=== PATIENT | female | born 1995 | race Caucasian/White ===

== ENCOUNTER 2018-08-05 11:06 | Day surgery (SDC) | payer BC ==
[~2018-08-05 11:06] MED LIST: Lactated Ringers 1,000 ML IV SCH
--- NOTE | 2018-08-05 11:53 | PCM.PREANE ---
Preanesthetic Assessment - Anesthesia/Transfusion/Family Hx Anesthesia History: Prior Anesthesia Without Reaction Family History of Anesthesia Reaction: No Transfusion History: No Prior Transfusion(s) - Review of Systems General: No Symptoms Pulmonary: No Symptoms Cardiovascular: No Symptoms Gastrointestinal: No Symptoms Neurological: No Symptoms Other: Reports: None - Physical Assessment NPO Status Date: 08/04/18 Height: 5 ft 8.5 in Weight: 68.039 kg ASA Class: 1 Mental Status: Alert & Oriented x3 Airway Class: Mallampati = 2 Dentition: Reports: Normal Dentition ROM/Head Extension: Full Lungs: Clear to Auscultation, Normal Respiratory Effort Cardiovascular: Regular Rate, Regular Rhythm - Lab Values: Laboratory Last Values WBC 4.59 K/uL (4.0-11.0) 08/05/18 11:20 RBC 4.86 M/uL (4.30-5.90) 08/05/18 11:20 Hgb 14.9 g/dL (12.0-16.0) 08/05/18 11:20 Hct 44.1 % (36.0-46.0) 08/05/18 11:20 MCV 90.7 fL (80.0-98.0) 08/05/18 11:20 MCH 30.7 pg (27.0-32.0) 08/05/18 11:20 MCHC 33.8 g/dL (31.0-37.0) 08/05/18 11:20 RDW Std Deviation 39.3 fl (28.0-62.0) 08/05/18 11:20 RDW Coeff of Wilmer 12 % (11.0-15.0) 08/05/18 11:20 Plt Count 237 K/uL (150-400) 08/05/18 11:20 MPV 9.80 fL (7.40-12.00) 08/05/18 11:20 Nucleated RBC % 0.0 /100WBC 08/05/18 11:20 Nucleated RBCs # 0 K/uL 08/05/18 11:20 HCG, Qual NEGATIVE (NEG) 08/05/18 11:20 - Allergies Allergies/Adverse Reactions: Allergies Allergy/AdvReac Type Severity Reaction Status Date / Time No Known Allergies Allergy Verified 08/05/18 11:51 - Blood Blood Available: Yes - Anesthesia Plan Pre-Op Medication Ordered: None - Acknowledgements Anesthesia Type Planned: General Anesthesia Pt an Appropriate Candidate for the Planned Anesthesia: Yes Alternatives and Risks of Anesthesia Discussed w Pt/Guardian: Yes Pt/Guardian Understands and Agrees with Anesthesia Plan: Yes Additional Comments: anes prob list: migraine hx PLAN: ga with toradol and antiemetic PreAnesthesia Questionnaire HEENT History: Reports: None Cardiovascular History: Reports: None Respiratory History: Reports: None Gastrointestinal History: Reports: None Genitourinary History: Reports: None SIGNAL SUPERVISOR History: Reports: None Musculoskeletal History: Reports: Fracture Other Musculoskeletal History: hx fx leg Neurological History: Reports: Migraines Psychiatric History: Reports: None Endocrine/Metabolic History: Reports: None Hematologic History: Reports: None Immunologic History: Reports: None Oncologic (Cancer) History: Reports: None Dermatologic History: Reports: None - Past Surgical History Head Surgeries/Procedures: Reports: None HEENT Surgical History: Reports: Adenoidectomy, Tonsillectomy Cardiovascular Surgical History: Reports: None Respiratory Surgical History: Reports: None GI Surgical History: Reports: None Female Surgical History: Reports: None Endocrine Surgical History: Reports: None Neurological Surgical History: Reports: None Musculoskeletal Surgical History: Reports: Other (See Below) Other Musculoskeletal Surgeries/Procedures:: hx tendon repair and loja treated on rt hand, hx cyst removed from rt hand Oncologic Surgical History: Reports: None - SUBSTANCE USE Smoking Status *Q: Never Smoker Recreational Drug Use History: No - HOME MEDS Home Medications: Home Meds Cranberry 1 tab PO DAILY 07/30/18 [History] Fexofenadine/Pseudoephedrine [Laura-D 24 Hour Tablet] 1 tab PO DAILY PRN 07/30 [History] Fluticasone Propionate [Flonase Allergy Relief] 1 spray NASBOTH DAILY PRN [History] L.acidoph,Paracasei, B.lactis [Probiotic] 1 tab PO DAILY 07/30/18 [History] Polyethylene Glycol 3350 [Miralax] 1 dose PO ASDIRECTED PRN 07/30/18 [History] - CURRENT (IN HOUSE) MEDS Current Meds: Current Medications Lactated Ringer's (Ringers, Lactated) 1,000 mls @ 125 mls/hr IV ASDIRECTED ON LICENSE OF [facility]
[2018-08-05] MEDS ORDERED: Propofol 200 MG/20 ML SDV ONE (12:28)
[2018-08-05] MEDS ORDERED: Midazolam 1 MG/ML 2 ML SDV ONE (12:28)
[2018-08-05] MEDS ORDERED: fentaNYL 100 MCG/2 ML SDV ONE (12:28)
[2018-08-05] MEDS ORDERED: Ondansetron 4 MG/2 ML SDV ONE (12:29)
[2018-08-05] MEDS ORDERED: Ketorolac 30 MG/ML SDV ONE (12:29)
[2018-08-05] MEDS ORDERED: Lidocaine 2% 5 ML SDV ONE (12:29)
[2018-08-05] MEDS ORDERED: Dexamethasone 4 MG/ML 5 ML MDV ONE (12:29)
[2018-08-05] MEDS ORDERED: fentaNYL 100 MCG/2 ML SDV IVPUSH PRN (13:24)
[2018-08-05] MEDS ORDERED: Ondansetron 4 MG/2 ML SDV IVPUSH PRN (13:24)
[2018-08-05] MEDS ORDERED: HYDROmorphone 2 MG/ML SDV IVPUSH PRN (13:24)
--- NOTE | 2018-08-05 14:10 | PCM.OPNOTE ---
- General Post-Op/Procedure Note Date of Surgery/Procedure: 08/05/18 Operative Procedure(s): operative hysterscopy polypectomy and fractional dilatation and curettage Findings: Uterus is anteverted, sounds to 9 cm, 1 cm anterior polyp, lower uterine segment. Pre Op Diagnosis: Uterine polyp Post-Op Diagnosis: Same Anesthesia Technique: General LMA Primary Surgeon: Ev Siddiqi Anesthesia Provider: Uzma Tran Pathology: endometrial polyp, endometrial curettings, endocervical curettings. Fluid Replacement, Intraop: 900 EBL in mLs: 30 Drain/Tube Comments:: hysteroscopic deficit 250 ml Complications: None Known Condition: Good
--- NOTE | 2018-08-05 15:22 | OR ---
SURGEON: Ev Siddiqi M.D. DATE OF PROCEDURE: 08/05/2018 PREOPERATIVE DIAGNOSIS: Endometrial polyp. POSTOPERATIVE DIAGNOSIS: Endometrial polyp. PROCEDURE: Hysteroscopic polypectomy, fractional D and C. PRIMARY SURGEON: Ev Siddiqi M.D. ANESTHESIA: General LMA. ESTIMATED BLOOD LOSS: Less than 30 mL. FINDINGS: Uterus anteverted, sounds to 9 cm, 1 cm anterior mid lower uterine segment polyp. COMPLICATIONS: None known. DISPOSITION: Stable to recovery. HYSTEROSCOPIC DEFICIT: 250 mL. IV FLUIDS: 900 mL of crystalloid. BRIEF HISTORY: This is a 23-year-old female, G0. She presents after ultrasound showed endometrial polyp. This was confirmed by saline-enhanced ultrasound and recommendation was to proceed with a hysteroscopic polypectomy and fractional D and C with risks discussed including bleeding, infection, uterine perforation with injury to surrounding organs, risk of thromboembolism, and risk of anesthesia. Understanding all these risks, she does desire to proceed. DESCRIPTION OF PROCEDURE: With the patient in dorsal lithotomy position, under adequate general LMA analgesia, the perineum and vagina were prepped with Betadine and draped in usual fashion for vaginal surgery. SCDs were in place. The bladder had been straight cathed and an appropriate time-out was held. After the pelvis was appropriately draped, a bimanual examination revealed an anteverted 8-week size uterus. Speculum was placed in the vagina. The anterior lip of the cervix was grasped with an Allis clamp. The cervix accepted 6 mm dilator without any difficulty and the uterus sounded to 9 cm. The MyoSure hysteroscope was placed into the uterine cavity and there was excellent visualization. Bilateral tubal ostia were identified, the fundus was identified, and there was a single 1 cm anterior polyp. The MyoSure was utilized to excise the polyp. Sharp curettage of the endocervix was performed. Then, after the MyoSure was removed and this was collected with a Cytobrush, sharp curettage of the endometrium was then performed and this tissue was sent to Pathology as endometrial curettings. This being complete, the hysteroscope was removed from the pelvis. All the instruments were removed from the vagina. Hysteroscopic deficit was recorded as 250 mL. Final sponge, needle, and instrument counts were reported as correct. There were no known complications. SPECIMENS: Uterine polyp, endometrial curettings, endocervical curettings. MAURILIO / SLICK /[id number]
--- NOTE | 2018-08-05 15:55 | PCM48HPAN ---
Post Anesthesia Note - EVALUATION WITHIN 48HRS OF ANESTHETIC Vital Signs in Normal Range: Yes Patient Participated in Evaluation: Yes Respiratory Function Stable: Yes Airway Patent: Yes Cardiovascular Function Stable: Yes Hydration Status Stable: Yes Pain Control Satisfactory: Yes Nausea and Vomiting Control Satisfactory: Yes Mental Status Recovered: Yes Resp Rate: 16
--- NOTE | 2018-08-05 15:55 | PCM.POSTAN ---
POST ANESTHESIA ASSESSMENT - MENTAL STATUS Mental Status: Alert, Oriented - RESPIRATORY Respiratory Status: Respiratory Rate WNL, Airway Patent, O2 Saturation Stable - CARDIOVASCULAR CV Status: Pulse Rate WNL, Blood Pressure Stable - GASTROINTESTINAL GI Status: No Symptoms - POST OP HYDRATION Hydration Status: Adequate & Stable
== END 2018-08-05 16:24 | disposition home or self-care (01) ==
LOC: MW.SDS 11:06
PROVIDERS: ATTEND Obstetrics & Gynecology
DX: N84.0 Polyp of corpus uteri (principal); Z98.890 Other specified postprocedural states
CPT/HCPCS: 36415; 58558; 84703; 85027; 88305; J1100; J1885; J2001; J2250; J2405; J2704; J3010; J7120